=== PATIENT | female | born 1990 | race Two or more races ===

== ENCOUNTER 2021-04-05 14:56 | Inpatient (IN) | payer BC, OTHER ==
[~2021-04-05] VITALS: Ht 160 cm; Wt 84.0 kg
[2021-04-05] MEDS ORDERED: LACTATED RINGERS 1,000 ML IV PRN (16:00)
[2021-04-05 16:24] LABS: MEAN CORPUSCULAR HEMOGLOBIN 29.3 pg (27.0-34.8); MEAN CORPUSCULAR HGB CONC 33.2 g/dL (32.4-35.8); RED BLOOD COUNT 3.78 x10^6/uL (3.82-5.3); RED CELL DISTRIBUTION WIDTH 16.7 % (9.6-15.2)
[2021-04-05 16:27] LABS: ALBUMIN 2.6 g/dL (3.4-5.0); ANION GAP 10 mmol/L (5-15); CALCIUM 7.7 mg/dL (8.5-10.1); CHLORIDE 106 mmol/L (98-107)
[2021-04-05 16:31] LABS: ALANINE AMINOTRANSFERASE 18 U/L (12-78); ALKALINE PHOSPHATASE 150 U/L (45-117); BILIRUBIN,TOTAL 0.9 mg/dL (0.2-1.0); CREATININE 0.58 mg/dL (0.55-1.02); TOTAL PROTEIN 6.9 g/dL (6.4-8.2)
[2021-04-05] MEDS: PENICILLIN GK 2,500,000 UNITS in DEXTROSE 5% 100 ML IVPB SCH ×2 (16:34→20:50)
[2021-04-05 17:11] LABS: MD YES; PLATELET COUNT 82 x10^3/uL (130-400)
[2021-04-05 17:14] LABS: BANDS%(MANUAL) 10 % (0-7); LYMPH#(MANUAL) 0.64 x10^3/uL (1-3.4); LYMPHS% (MANUAL) 4 % (22-44); MONOS#(MANUAL) 0.64 x10^3/uL (0.3-2.7); MONOS% (MANUAL) 4 % (2-9); SEG#(MANUAL) 13.12 x10^3/uL (1.8-6.8); SEGS% (MANUAL) 82 % (42-75)
[2021-04-05 17:15] LABS: <PLATELET ESTIMATE> DECREASED; ANISOCYTOSIS 1+; GIANT PLATELETS 1+; POLYCHROMASIA 1+
[2021-04-06] MEDS: MAGNESIUM SULF. PMX 20GM/500ML 500 ML IV SCH ×3 (00:12→12:00)
[2021-04-06] MEDS: PENICILLIN GK 2,500,000 UNITS in DEXTROSE 5% 100 ML IVPB SCH ×4 (00:27→12:30)
[2021-04-06] MEDS ORDERED: LIDOCAINE 1%, 20ML ONE (10:09)
[2021-04-06] MEDS ORDERED: OXYTOCIN 30U/ 0.9% NaCL 500ML 500 ML ONE (10:09)
[2021-04-06] MEDS ORDERED: MISOPROSTOL 200 MCG TABLET ONE (10:09)
[2021-04-06] MEDS ORDERED: NEWBORN KIT ONE (10:10)
[2021-04-06] MEDS ORDERED: OXYTOCIN 30U/ 0.9% NaCL 500ML 500 ML IV ONE (10:30)
[2021-04-06] MEDS ORDERED: ACETAMINOPHEN 325 MG TABLET PO PRN (11:00)
[2021-04-06] MEDS ORDERED: SIMETHICONE 80 MG CHEW TAB PO PRN (11:00)
[2021-04-06] MEDS ORDERED: DOCUSATE 100 MG CAPSULE PO PRN (11:00)
[2021-04-06] MEDS ORDERED: BISACODYL 10 MG SUPP PR PRN (11:00)
[2021-04-06] MEDS ORDERED: METHYLERGONOVINE 0.2 MG/ML IM PRN (11:00)
[2021-04-06] MEDS: IBUPROFEN 600 MG TABLET PO PRN ×2 (11:17→17:29)
[2021-04-06] MEDS: OXYTOCIN 30U/ 0.9% NaCL 500ML 500 ML IV SCH ×2 (11:26→21:00)
[2021-04-06] MEDS ORDERED: BETAMETHASONE 6 MG/ML, 5ML IM ONE (12:30)
[2021-04-06 13:32] VITALS: BP 103/68
[2021-04-06 21:30] VITALS: BP 97/58
[2021-04-07 00:05] VITALS: BP 113/70
[2021-04-07 01:14] LABS: BASOPHILS % (AUTO) 0 % (0-1); EOSINOPHILS % (AUTO) 0 % (1-7); LYMPHOCYTES % (AUTO) 10 % (22-44); MEAN CORPUSCULAR HEMOGLOBIN 29.3 pg (27.0-34.8); MEAN PLATELET VOLUME 12.2 fL (7.4-10.4); MONOCYTES % (AUTO) 6 % (2-9); NEUTROPHILS % (AUTO) 83 % (42-75); PLATELET COUNT 78 x10^3/uL (130-400); RED BLOOD COUNT 3.51 x10^6/uL (3.82-5.3)
[2021-04-07 01:43] LABS: MD SCAN
[2021-04-07 03:55] VITALS: BP 106/63
[2021-04-07] MEDS: OXYTOCIN 30U/ 0.9% NaCL 500ML 500 ML IV SCH ×2 (07:00→17:00)
[2021-04-07 07:15] VITALS: BP 100/65
[2021-04-07] MEDS: PRENATAL VIT/IRON/FA 1 EACH TABLET PO SCH (10:20)
[2021-04-07 19:20] VITALS: BP 108/69
[2021-04-08] MEDS: OXYTOCIN 30U/ 0.9% NaCL 500ML 500 ML IV SCH ×2 (03:00→13:00)
[2021-04-08 07:45] VITALS: BP 124/74
[2021-04-08] MEDS: PRENATAL VIT/IRON/FA 1 EACH TABLET PO SCH (09:00)
[2021-04-08] MEDS ORDERED: FERR324T18 PO (11:05)
[2021-04-08] MEDS ORDERED: DIPH,PERTUSS(ACELL),TET VAC/PF NC IM-VACC ONE (13:30)
== END 2021-04-08 13:45 | disposition home or self-care (01) | DRG 807 ==
LOC: EDIP 14:56 → UNDOADMIN 14:56 → EDIP 15:11 → LDIP 15:11 → 2NW 04-06 13:43 → LDIP 04-06 13:43 → 2NW 04-06 13:50
PROVIDERS: ADMIT Obstetrics & Gynecology Maternal & Fetal Medicine; ATTEND Obstetrics & Gynecology Maternal & Fetal Medicine
PROC: 10E0XZZ Delivery of Products of Conception, External Approach (ICD-10-PCS; principal; 2021-04-08)
PROC: 0UQMXZZ Repair Vulva, External Approach (ICD-10-PCS; 2021-04-08)
PROC: 3E0234Z Introduction of Serum, Toxoid and Vaccine into Muscle, Percutaneous Approach (ICD-10-PCS; 2021-04-08)
DX: O60.14X0 Preterm labor third trimester with preterm delivery third trimester, not applicable or unspecified (principal); Z37.0 Single live birth; Z20.822 Contact with and (suspected) exposure to COVID-19; O70.0 First degree perineal laceration during delivery; Z3A.32 32 weeks gestation of pregnancy; Z23 Encounter for immunization
CPT/HCPCS: 36415; 80053; 83735; 84112; 85025; 86592; 86850; 86900; 87635; 88307; 89060; 90715; G0378; J2540; J2590; J3475; J7120; Q0114